=== PATIENT | female | born 1985 | race Two or more races ===

== ENCOUNTER 2023-08-13 18:48 | Emergency (ER) | payer OTHER ==
[~2023-08-13] VITALS: Ht 165.1 cm; Wt 65.8 kg
[~2023-08-13 18:48] MED LIST: FERR325E14 PO; IBUP-974 PO
[2023-08-13 19:20] VITALS: BP 121/71; PULSE 90; RESP 17; TEMP 97.8; O2SAT 100
[2023-08-13 20:23] LABS: BASOPHILS % (AUTO) 0.5 % (0.0-2.0); EOSINOPHILS # (AUTO) 0.1 K/uL (0-0.4); EOSINOPHILS % (AUTO) 1.1 % (0.0-4.0); HEMATOCRIT 37.7 % (36-48); HEMOGLOBIN 12.7 g/dL (12.0-16.0); LYMPHOCYTES # (AUTO) 2.8 K/uL (2.5-16.5); LYMPHOCYTES % (AUTO) 26.1 % (20.5-51.1); MEAN CORPUSCULAR HEMOGLOBIN 28 pg (27-31); MEAN CORPUSCULAR HGB CONC 34 g/dL (33-37); MEAN CORPUSCULAR VOLUME 82.4 fL (80-94); MONOCYTES # (AUTO) 1.1 K/uL (0.8-1.0); MONOCYTES % (AUTO) 9.9 % (1.7-9.3); NEUTROPHILS # (AUTO) 6.8 K/uL (1.8-7.7); NEUTROPHILS % (AUTO) 62.4 % (42.2-75.2); PLATELET COUNT (AUTO) 321 K/uL (140-450); RED BLOOD CELL COUNT(AUTO) 4.57 MIL/uL (4.20-5.40); RED CELL DISTRIBUTION WIDTH 13.7 % (11.6-13.7); WHITE BLOOD COUNT (AUTO) 10.8 K/uL (4.8-10.8)
[2023-08-13 20:32] LABS: ANION GAP 14.1 (8-16); CALCIUM 8.6 mg/dL (8.5-10.1); CARBON DIOXIDE 26.5 mmol/L (21-32); CREATININE 0.8 mg/dL (0.6-1.3); POTASSIUM 3.6 mmol/L (3.5-5.1)
[2023-08-13 20:37] LABS: ALBUMIN 3.4 g/dL (3.4-5.0); BILIRUBIN,DIRECT 0.1 mg/dL (0.0-0.3); TOTAL BILIRUBIN 0.3 mg/dL (0.0-1.0); TOTAL PROTEIN, SERUM 7.9 g/dL (6.4-8.2)
[2023-08-13 22:20] VITALS: BP 120/70; PULSE 88; RESP 16; TEMP 98.3; O2SAT 100
== END 2023-08-13 22:00 | disposition home or self-care (01) ==
LOC: MED 18:48
DX: N83.201 Unspecified ovarian cyst, right side (principal); Z79.899 Other long term (current) drug therapy
CPT/HCPCS: 36415; 76856; 80048; 80076; 81002; 81025; 83690; 85025; 99284